=== PATIENT | male | born 1980 | race Caucasian/White ===

== ENCOUNTER 2018-07-03 06:34 | Emergency (ER) | payer BC ==
[~2018-07-03] VITALS: Ht 172.7 cm; Wt 90.0 kg
[2018-07-03] MEDS ORDERED: CEPHALEXIN500 M1 PO (07:53)
[2018-07-03 08:01] VITALS: BP 146/79
== END 2018-07-03 08:18 | disposition home or self-care (01) | DRG 563 ==
LOC: ED 06:34
DX: S92.532A Displaced fracture of distal phalanx of left lesser toe(s), initial encounter for closed fracture (principal); S90.415A Abrasion, left lesser toe(s), initial encounter; R22.42 Localized swelling, mass and lump, left lower limb; W22.8XXA Striking against or struck by other objects, initial encounter; Y93.01 Activity, walking, marching and hiking; Y92.009 Unspecified place in unspecified non-institutional (private) residence as the place of occurrence of the external cause